=== PATIENT | female | born 1985 ===

== ENCOUNTER 2017-11-11 12:30 | Emergency (ER) | payer OTHER ==
[~2017-11-11] VITALS: Ht 167.6 cm; Wt 62.6 kg
[2017-11-11] MEDS ORDERED: DICLOFENAC SODI50 MG PO (15:20)
[2017-11-11] MEDS ORDERED: NEURONTIN300 MG PO (15:20)
[2017-11-11] MEDS ORDERED: MEDROLPACK PO (15:20)
== END 2017-11-11 15:56 | disposition home or self-care (01) ==
LOC: ER 12:30
DX: M79.1 Myalgia (principal)

== ENCOUNTER 2018-09-27 14:30 | Emergency (ER) | payer OTHER ==
[~2018-09-27] VITALS: Ht 167.6 cm; Wt 62.6 kg
[~2018-09-27 14:30] MED LIST: DICLOFENAC SODI50 MG PO; MEDROLPACK PO; NEURONTIN300 MG PO
== END 2018-09-27 19:00 | disposition home or self-care (01) ==
LOC: ER 14:30
DX: O03.9 Complete or unspecified spontaneous abortion without complication (principal)